=== PATIENT | female | born 1950 | race Caucasian/White ===

== ENCOUNTER → 2018-01-19 | Outpatient (CLI) | payer OTHER, MEDICARE ==
[~2018-01-19] MED LIST: CHLO25 PO
== END | disposition home or self-care (01) ==
LOC: PLD 07:30 → LAB SHORT 07:30 → EDSTATUS 09:07
DX: D48.5 Neoplasm of uncertain behavior of skin (principal)
CPT/HCPCS: 88305

== ENCOUNTER → 2019-12-10 | Outpatient (CLI) | payer OTHER | END | disposition home or self-care (01) | LOC: PLD 08:12 → LAB SHORT 08:12 | DX: L57.0 Actinic keratosis (principal) | CPT/HCPCS: 88305 ==